=== PATIENT | male | born 1940 | race Caucasian/White ===

== ENCOUNTER 2018-04-02 09:49 | Outpatient (CLI) | payer MEDICARE, BC ==
--- NOTE | 2018-04-02 11:06 | CT ---
CT HEAD WITHOUT CONTRAST: DATE: 04/02/18. COMPARISON: None. HISTORY: Reevaluate subdural hematoma seen on prior outside imaging. TECHNIQUE: Serial axial CT imaging is obtained at 5 mm intervals from vertex through the skull base without cont rast. FINDINGS: No prior imaging is available for direct comparison. The patient is moving during the examination, d espite scanning the patient twice. 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 The subdural hematoma on the right measures up to 1.3 cm in transverse dimension delphine r the vertex in the right parietal region. This component is hypodense. The hyperdense component is in the posterior right parietooccipital region and measures up to 4 mm in greatest transverse dimens ion. Evaluation for midline shift is limited as the patient's head is tilted to the left. There is no kimo tricular enlargement. If there is any midline shift from right to left, it is mild, in the 3-4 mm ra nge. Imaged paranasal sinuses/mastoid air cells are grossly unremarkable with no acute osseous abnormality . IMPRESSION: Motion-limited examination demonstrating a right-sided acute on chronic subdural hematoma. No compar pb imaging is available. POS: [facility]
== END 2018-04-02 09:50 | disposition home or self-care (01) ==
LOC: TBSIIMAG 09:49
PROVIDERS: ATTEND Surgery
DX: I62.01 Nontraumatic acute subdural hemorrhage (principal); I62.03 Nontraumatic chronic subdural hemorrhage
CPT/HCPCS: 70450